=== PATIENT | female | born 1975 | race Caucasian/White ===

== ENCOUNTER 2019-05-01 12:06 | Emergency (ER) | payer BC, OTHER ==
[2019-05-01 12:38] VITALS: BMI 32.9
[2019-05-01] MEDS ORDERED: SODIUM CHLORIDE 0.9% 500 ML INFUS.BAG IV ONE (13:24)
--- NOTE | 2019-05-01 13:26 | PDOC ---
History of Present Illness - General Chief Complaint: Vaginal Bleeding Stated Complaint: MISCARRIAGE Time Seen by Provider: 05/01/19 13:22 History Source: Patient Exam Limitations: No Limitations - History of Present Illness Initial Comments: HPI: 43 y/o female estimated 6 weeks presenting to [facility] ER complaining of several days of vaginal spotting. Was evaluated today at Dr. Barber's clinic. U/S revealed loss of pole and decrease in the size of the gestational sac when compared to U/S performed last week. Pt became emotional when she was told the findings were consistent with likely spontaneous . She "passed out." Was sitting down and fell forward. Office staff stopped her from falling out of the chair. Never struck her head or neck. She quickly regained consciousness, and vomited once. She was transported via EMS for further evaluation. Pt denies concern for personal safety. Feels safe in her living environment and her relationship. LMP 08 Mar 2019 Medical Hx: - Denies past medical history. Denies prescription medications. Review of Systems: In addition to that documented in the HPI above, the additional ROS was obtained: Constitutional- Denies fevers or chills ENMT- Denies sore throat CV- Denies chest pain Resp- Denies SOB GI- Denies vomiting or diarrhea - Denies dysuria, hematuria, or urinary frequency Physical Examination: Vital signs and nursing notes reviewed. Constitutional- Well-developed, well-nourished adult female in no acute distress or obvious discomfort. Able to walk unassisted through the department without difficulty. Head- Normocephalic. No obvious external signs of trauma. Eyes- Sclerae white. Neck- Supple, trachea is midline. Cardiovascular / Chest- Regular rate and regular rhythm. No murmur, rubs, clicks, or gallops. Peripheral pulses- radial pulses full. Respiratory- Breathing unlabored. Equal chest rise and fall. Clear to auscultation bilaterally. No stridor, no wheezing, no rhonchi. Gastrointestinal- abdomen is soft, non-tender, non-distended. No overlying skin lesions or obvious signs of trauma. Female Pelvic: External genitalia unremarkable. Speculum exam with small amount of bleeding and pooling. Vaginal wall mucosa is unremarkable. Cervix visualized with small amount of protruding clotted material. Bimanual exam without cervical motion tenderness, adnexal tenderness or any masses appreciated. ED Attending Dr. Bradley chaperoned exam. Neuro- Alert and oriented x4. Moving all four extremities spontaneously. No facial asymmetry. No slurred speech. Skin- Warm, dry, and intact. Psych- Affect- appropriate. Mood- normal. Speech was non-labored, non- pressured. MDM: 43 y/o female presenting with s/p syncopal episode after learning of her likely mischarrage. No subsequent trauma. In setting of vaginal spotting in early first trimester . Afebrile. Vitals unremarkable for hypotension or tachycardia. Physical exam as described above. Suspect likely vasovagal episode vs dehydration. Will further evaluation with EKG, labs, and TVUS to eval for retained products. Low suspicion for ectopic given reported U/S history. EKG unremarkable for evidence of arrhythmia or ischemia. Reviewed laboratory data. No clinically significant derangement noted. Pelvic exam unremarkable for significant hemorrhage. TVUS consistent with findings reported by patient. Low suspicion for ectopic as gestational sac and pole were reportedly seen last week. Pt able to ambulate unassisted. 01 May 2019 16:00 PM Page sent for Dr. Cruz through her office answering service. Awaiting call back. Continue to suspect likely vasovagal episode in setting of spontaneous ab. Discussed physical exam findings, laboratory results, and U/S findings with pt. Answered all questions. Provided return precautions. Pt expressed verbal understanding and agreement with plan to discharge home with outpatient follow up. Provided copies of todays results. 01 May 2019 16:41 PM (After pt was discharged) Telephone discussion with Dr. Cruz. Verbally appraised of the pts HPI, ED course, and current plan of management. Agreed episode was likely vasovagal. Will see the pt in clinic for follow up. Nba Munson M.D., PGY2 Emergency Medicine Resident Past History - Past Medical History Allergies/Adverse Reactions: Allergies Allergy/AdvReac Type Severity Reaction Status Date / Time No Known Drug Allergies Allergy Verified 05/01/19 12:45 Home Medications: Ambulatory Orders NK [No Known Home Medication] 05/01/19 Anemia: No Asthma: No Cancer: No Cardiac Disorders: No CVA: No COPD: No CHF: No Dementia: No Diabetes: No GI Disorders: No Disorders: No HTN: No Hypercholesterolemia: No Liver Disease: No Seizures: No Thyroid Disease: No - Surgical History Abdominal Surgery: Yes (LAP CHOLECYCYECOMY 2007) Appendectomy: No Cardiac Surgery: No Cholecystectomy: No Lung Surgery: No Neurologic Surgery: No Orthopedic Surgery: No - Reproductive History Is Patient Now?: Yes (#): 3 Para: 1 - Immunization History Immunization Up to Date: Yes - Psycho Social/Smoking Cessation Hx Smoking History: Never smoked Have you smoked in the past 12 months: No If you are a former smoker, when did you quit?: OVER 20 YEARS AGO Hx Alcohol Use: No Drug/Substance Use Hx: No Substance Use Type: None Hx Substance Use Treatment: No *Physical Exam - Vital Signs Last Vital Signs Temp Pulse Resp BP Pulse Ox 97.9 F 74 17 114/61 100 05/01/19 12:32 05/01/19 12:32 05/01/19 12:32 05/01/19 12:32 05/01/19 12:32 ED Treatment Course - LABORATORY CBC & Chemistry Diagram: 05/01/19 13:17 05/01/19 13:17 - ADDITIONAL ORDERS Additional order review: Laboratory Results 05/01/19 12:24 POC Glucometer 112 05/01/19 12:24 POC Glucometer 112 - RADIOLOGY Radiology Studies Ordered: Category Date Time Status TRANSVAGINAL US PREG [US] Stat Ultrasound 05/01/19 13:25 Ordered Discharge - Discharge Information Problems reviewed: Yes Clinical Impression/Diagnosis: Vaginal bleeding before 22 weeks gestation Syncope Qualifiers: Syncope type: unspecified Qualified Code(s): R55 - Syncope and collapse Condition: Good Disposition: HOME - Admission No - Follow up/Referral Referrals: Massiel Cruz MD [Staff Physician] - - Patient Discharge Instructions Patient Printed Discharge Instructions: DI for Syncope in Adults (Fainting), DI for Miscarriage Additional Instructions: You were seen today after you passed out at your doctor's office. Your blood work was normal. Your ultrasound showed the same findings that were seen at Dr. Cruz's clinic. You likely have experienced a miscarriage. Im very sorry. You need to follow up with Dr. Cruz in the clinic in the next few days. You will need to call to make an appointment. The number is included in this packet. A copy of todays results are attached to this packet. Take it to the appointment so your doctor can review them. Go to the nearest emergency department if your condition worsens or you feel like you need additional emergency evaluation. Print Language: MALTESE - Post Discharge Activity Work/Back to School Note: Back to Work
[2019-05-01 13:39] LABS: BASO % 0.4 % (0-2.0); EOS % 0.8 % (0-4.5); EPI CELLS 14.8 /HPF (0-5/HPF); HEMATOCRIT 38.8 % (32.4-45.2); HEMOGLOBIN 12.7 GM/dL (10.7-15.3); HYALINE CASTS 19 /lpf (0-8); LYMPH % 12.4 % (8-40); MCH 28.6 pg (25.7-33.7); MCHC 32.8 g/dl (32.0-36.0); MEAN CELL VOLUME 87.2 fl (80-96); MEAN PLT VOLUME 8.4 fl (7.5-11.1); NEUT % 80.4 % (42.8-82.8); PLATELET COUNT 273 K/MM3 (134-434); RBC 4.45 M/mm3 (3.60-5.2); RDW 13.9 % (11.6-15.6); URINE APPEARANCE CLOUDY; URINE BACTERIA 214.9 /hpf (NEGATIVE); URINE BILIRUBIN NEGATIVE (NEGATIVE); URINE COLOR DK YELLOW; URINE GLUCOSE (UA) NEGATIVE (NEGATIVE); URINE KETONE NEGATIVE (NEGATIVE); URINE LEUK ESTERASE TRACE (NEGATIVE); URINE NITRITE NEGATIVE (NEGATIVE); URINE PROTEIN 1+ (NEGATIVE); URINE RBC 7 /hpf (0-4); URINE UROBILINOGEN 0.2 mg/dL (0.2-1.0); URINE WBC 8 /hpf (0-5); WHITE BLOOD COUNT 11.4 K/mm3 (4.0-10.0)
--- NOTE | 2019-05-01 14:12 | EKG ---
Test Reason : Blood Pressure : / mmHG Vent. Rate : 077 BPM Atrial Rate : 077 BPM P-R Int : 160 ms QRS Dur : 094 ms QT Int : 424 ms P-R-T Axes : 041 006 015 degrees QTc Int : 479 ms NORMAL SINUS RHYTHM NORMAL ECG NO PREVIOUS ECGS AVAILABLE Confirmed by Ismael Weiss ([id number]) on 05/01/2019 2:12:27 PM Referred By: Confirmed By:Ismael Weiss
[2019-05-01 14:14] LABS: ALBUMIN 3.7 g/dl (3.4-5.0); BILIRUBIN,TOTAL 0.2 mg/dL (0.2-1); BLOOD UREA NITROGEN 9.2 mg/dL (7-18); CALCIUM 8.6 mg/dL (8.5-10.1); CREATININE 0.7 mg/dL (0.55-1.3); POTASSIUM 3.6 mmol/L (3.5-5.1); TOT PROT 7.2 g/dl (6.4-8.2)
--- NOTE | 2019-05-01 16:08 | PDOC ---
Documentation entered by Jailene Sims SCRIBE, acting as scribe for Nichole Bradley MD. Nichole Bradley MD: This documentation has been prepared by the Ninfa ayala Nirvannie, SCRIBE, under my direction and personally reviewed by me in its entirety. I confirm that the documentation accurately reflects all work, treatment, procedures, and medical decision making performed by me. Attending Attestation - Resident Resident Name: Nba Munson - ED Attending Attestation I have performed the following: I have examined & evaluated the patient, The case was reviewed & discussed with the resident, I agree w/resident's findings & plan, Exceptions are as noted - HPI HPI: 05/01/19 14:46 The patient is a 43 year old female , with no significant past medical history, who presents to the emergency department with 2 day of vaginal bleeding. Patient describes her vaginal bleeding as bright red blood when wiping as well as spotting. Patient was advised by her [employer] to report to the ED for further evaluation. was seeing dr Barber today, had done an ultrasound could not see gestational sac she was upset and she passed out afterwards. states they were able to see a gestational sac, yolk sac and prior on in office ultrsaound. does have h/o prior miscarriage, no h/o ectopic. no current abd pain only cramping. Allergies: NKDA 05/01/19 15:55 - Physicial Exam PE: 05/01/19 15:57 awake alert nad lungs clear bilat heart lungs clear bilat heart rrr no mrg abd soft nt nd. pelvic exam blood in vault, no cmt no adnexal tendernes. ext wwp. nuero alert oriented x 3. - Medical Decision Making 05/01/19 15:58 43 yo F here with vaginal bleeding. 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 differential incomlete vs. threatened ab. plan tvus, labs iv hydration pt labs unremarkable. no anemia. blood type RH positive. tvus no gestational sac, bhcg 1999. due to fact has had iup on prior us. dc home. pt feels improved. no longer dizzy.
[2019-05-01 16:11] VITALS: BP 125/80; PULSE 91; TEMP 98.3
== END 2019-05-01 16:20 | disposition home or self-care (01) ==
LOC: JER 12:06
PROC: 3E0337Z Introduction of Electrolytic and Water Balance Substance into Peripheral Vein, Percutaneous Approach (ICD-10-PCS; principal; 2019-05-01)
DX: O03.9 Complete or unspecified spontaneous abortion without complication (principal); Z87.891 Personal history of nicotine dependence
CPT/HCPCS: 36415; 76817-TC; 80053; 81003; 82962; 84702; 85025; 87086; 93005; 93010; 99285-25